=== PATIENT | male | born 1965 | race Caucasian/White ===

== ENCOUNTER 2019-07-23 13:44 | Inpatient (IN) | payer OTHER ==
[2019-07-23 14:26] LABS: Absolute Lymphocytes (CBC) 1.8 K/uL (0.7-4.9); Basophils % 0.8 % (0-1.3); Hematocrit 50.6 % (39.6-49.0); Lymphocytes % 13.5 % (15.3-44.8); MPV 8.6 fL (7.6-11.3); RBC Red Blood Cell Count 5.57 M/uL (4.33-5.43)
[2019-07-23 14:28] LABS: Protime INR 1.11
[2019-07-23 14:50] LABS: ALT/SGPT 39 U/L (12-78); AST/SGOT 15 U/L (15-37); Albumin 4.2 g/dL (3.4-5.0); Alkaline Phosphatase 60 U/L (45-117); BUN Blood Urea Nitrogen 30 mg/dL (7-18); Bicarbonate 25 mmol/L (21-32); Bilirubin Direct 0.2 mg/dL (0-0.2); Glucose Level 153 mg/dL (74-106); Magnesium 2.2 mg/dL (1.8-2.4); NT PRO-BNP 10 pg/mL (<125); Potassium 3.4 mmol/L (3.5-5.1); Protein, Total 8.1 g/dL (6.4-8.2); Sodium Level 133 mmol/L (136-145); Troponin (Emerg Dept Use Only) < 0.02 ng/mL (0.0-0.045)
--- NOTE | 2019-07-23 15:01 | RAD REPORT ---
EXAM DESCRIPTION: RAD - Chest Single View - 07/23/2019 2:21 pm CLINICAL HISTORY: CHEST PAIN Chest pain. COMPARISON: Chest Pa And Lat (2 Views) dated 09/29/2016 FINDINGS: Portable technique limits examination quality. The lungs are grossly clear. The heart is normal in size. No displaced fractures. IMPRESSION: No acute intrathoracic process suspected.
[2019-07-23] MEDS ORDERED: NA CHLORIDE 0.9% 1,000 ML ONE (15:05)
[2019-07-23] MEDS ORDERED: MORPHINE 2 MG/ML SYR ONE (15:12)
[2019-07-23] MEDS ORDERED: ONDANSETRON 4 MG/2 ML VIAL ONE (15:13)
--- NOTE | 2019-07-23 16:11 | RAD REPORT ---
EXAM DESCRIPTION: CT - Chest Abdomen Pelvis W Cont - 07/23/2019 3:29 pm CLINICAL HISTORY: Chest and abdomen pain. chest pain, abdominal pain COMPARISON: Chest Single View dated 07/23/2019 TECHNIQUE: Approximately 100 mL nonionic IV contrast was administered to the patient. All CT scans are performed using dose optimization technique as appropriate and may include automated exposure control or mA/KV adjustment according to patient size. FINDINGS: Mild linear subsegmental atelectasis is present in both lower lung canseco. No focal infilt rate is detected.No pleural or pericardial effusion.No intrathoracic adenopathy. Diffuse fatty liver. Cholelithiasis. The spleen, pancreas, adrenal glands and kidneys are within norm al limits. No bowel obstruction, free air, free fluid or abscess. Normal appendix. No pathologic lymphadenopath y in the abdomen or pelvis. Mild lumbar degenerative changes. IMPRESSION: Cholelithiasis. Fatty liver.
--- NOTE | 2019-07-23 17:38 | EDPHYS ---
Physician Documentation [facility] Name: Yno Coy Jr Age: 53 yrs Sex: Male : 1965 Arrival Date: 07/23/2019 Time: 13:47 Bed 17 Private MD: Derrick Sharp ED Physician Александр Guevara HPI: 07/22 14:24 This 53 yrs old Male presents to ER via Ambulatory with complaints of Chest jm Pain. 14:24 The patient or guardian reports chest pain that is located primarily in the [facility]al [facility]. Onset: acutely, 6 hour(s) ago. Associated signs and symptoms: Pertinent positives: back pain. The chest pain is described as burning, cramping. This is a 53 year old female with a history of htn that presents to the ED with complaints of chest pain which the patient now describes as burning. Patient states this episode began at approx 8 am with cramping to the right side of his back. Cramping then moved to his chest and lasted approx 15 minutes. Patient states during that episode he almost passed out. . Historical: - Allergies: 14:03 No Known Allergies; ll1 - PMHx: 14:03 Hypertension; ll1 - PSHx: 14:03 shoulder surgery; ll1 - Immunization history:: Flu vaccine is not up to date. - Social history:: Smoking status: Patient reports the use of cigarette tobacco products, denies chronic smoking, but will smoke occasionally, cigars, Patient uses alcohol, only on a social basis. Patient/guardian denies using street drugs. ROS: 14:24 Constitutional: Negative for fever, chills, and weight loss. jmm 14:24 Cardiovascular: Positive for chest pain. 14:24 Back: Positive for pain at rest, pain with movement. 14:24 All other systems are negative. 16:42 Abdomen/GI: Negative for abdominal pain, nausea, vomiting, diarrhea, and constipation. jmm 16:42 Constitutional: Positive for 16:42 Abdomen/GI: Positive for abdominal pain. Exam: 14:24 Constitutional: This is a well developed, well nourished patient who is awake, alert, jmm and in no acute distress. Head/Face: atraumatic. Eyes: EOMI, no conjunctival erythema appreciated ENT: Moist Mucus Membranes Neck: Trachea midline, Supple Chest/axilla: Normal chest wall appearance and motion. Cardiovascular: Regular rate and rhythm. No edema appreciated Respiratory: Normal respirations, no respiratory distress appreciated Abdomen/GI: Non distended, soft Back: Normal ROM Skin: General appearance color normal MS/ Extremity: Moves all extremities, no obvious deformities appreciated, no edema noted to the lower extremities Neuro: Awake and alert, normal gait Psych: Behavior is normal, Mood is normal, Patient is cooperative and pleasant Vital Signs: 13:57 BP 145 / 94; Pulse 86; Resp 19; Temp 98.0; Pulse Ox 96% on R/A; Pain 4/10; ll1 14:06 BP 154 / 94; Pulse 82; Resp 16; Temp 97.9(TE); Pulse Ox 95% on R/A; mh5 15:08 BP 143 / 98; Pulse 75; Resp 19; Pulse Ox 94% on R/A; mh5 16:02 BP 123 / 80; Pulse 69; Resp 13; Pulse Ox 96% on R/A; ah 18:40 BP 133 / 79; Pulse 86; Resp 16; Temp 98.7(O); Pulse Ox 97% on R/A; mh5 MDM: 13:58 Patient medically screened. [facility] 17:33 Data reviewed: vital signs, nurses notes, lab test result(s), EKG, radiologic studies, [facility] scan, plain films, ultrasound. ED course: I discussed the patient with Dr. almaraz whom will consult on admission. I discussed the patient with Dr. Schwartz whom will see the patient in the ED. . 07/22 14:04 Order name: Basic Metabolic Panel; Complete Time: 14:52 [facility] 07/22 14:04 Order name: CBC with Diff; Complete Time: 14:34 [facility] 07/22 14:04 Order name: LFT's; Complete Time: 14:52 [facility] 07/22 14:04 Order name: Magnesium; Complete Time: 14:52 [facility] 07/22 14:04 Order name: NT PRO-BNP; Complete Time: 14:52 [facility] 07/22 14:04 Order name: PT-INR; Complete Time: 14:36 [facility] 07/22 14:04 Order name: Troponin (emerg Dept Use Only); Complete Time: 14:52 [facility] 07/22 14:04 Order name: XRAY Chest (1 view); Complete Time: 15:06 [facility] 07/22 14:06 Order name: D-Dimer; Complete Time: 14:52 [facility] 07/22 15:10 Order name: CT Chest, Abdomen, Pelvis - W/Contrast; Complete Time: 16:20 [facility] 07/22 16:21 Order name: US Abdomen Limited; Complete Time: 17:45 [facility] 07/22 17:12 Order name: Troponin (emerg Dept Use Only); Complete Time: 18:01 [facility] 07/22 14:04 Order name: EKG; Complete Time: 14:05 [facility] 07/22 14:04 Order name: Cardiac monitoring; Complete Time: 14:05 [facility] 07/22 14:04 Order name: EKG - Nurse/Tech; Complete Time: 17:37 [facility] 07/22 14:04 Order name: IV Saline Lock; Complete Time: 17:37 [facility] 07/22 14:04 Order name: Labs collected and sent; Complete Time: 17:37 [facility] 07/22 14:04 Order name: O2 Per Protocol [facility] 07/22 14:04 Order name: O2 Sat Monitoring [facility] Administered Medications: 15:00 Drug: NS 0.9% 1000 ml Route: IV; Rate: 1 bolus; Site: right antecubital; 16:00 Follow up: Response: No adverse reaction; IV Status: Completed infusion; IV Intake: ah 1000ml 15:15 Drug: Zofran (Ondansetron) 4 mg Route: IVP; Site: right antecubital; 16:15 Follow up: Response: No adverse reaction; Nausea is decreased 15:15 Drug: morphine 2 mg Route: IVP; Site: right antecubital; 16:15 Follow up: Response: No adverse reaction; RASS: Alert and Calm (0) 15:19 CANCELLED (wrong order): morphine 2 mg IVP once; (PAIN>8) RASS on ADMN: Combtv4, Very ah Agttd3, Agttd2, Rstlss1, AlertClm0, Drwsy-1, LtSdtn-2, ModSdtn-3, DpSdtn-4, UnArsble-5 x2 18:10 Drug: Mefoxin 1 grams Route: IVPB; Infused Over: 30 mins; Site: right antecubital; 19:40 Follow up: Response: No adverse reaction; IV Status: Completed infusion; IV Intake: 50mlah Disposition: 07/23 07:18 Co-signature as Attending Physician, Александр Guevara MD Available for consultation . ps1 Disposition: 07/23/19 17:37 Hospitalization ordered by Gagan Schwartz for Observation. Preliminary diagnosis are Acute cholecystitis, Upper abdominal pain, unspecified, Cholelithiasis. - Bed requested for Telemetry/MedSurg (observation). - Status is Observation. - Condition is Stable. - Problem is new. - Symptoms are unchanged. Signatures: Dispatcher [employer] EDMS Mushtaq Tanner PA PA jmm Martinez, Chapo em1 Александр Guevara MD MD ps1 Yamilex Kirby RN RN Fritz Cope RN RN ll1 Corrections: (The following items were deleted from the chart) 07/22 15:19 15:18 morphine 2 mg IVP once; (PAIN>8) RASS on ADMN: Combtv4, Very Agttd3, Agttd2, Rstlss1, AlertClm0, Drwsy-1, LtSdtn-2, ModSdtn-3, DpSdtn-4, UnArsble-5 x2 ordered. 16:51 14:24 Abdomen/GI: Negative for abdominal pain, nausea, vomiting, diarrhea, and [facility] constipation, [facility] 18:13 17:37 Hospitalization Ordered by Gagan Schwartz MD for Observation. Preliminary diagnosis em1 is Acute cholecystitis; Upper abdominal pain, unspecified; Cholelithiasis. Bed requested for Telemetry/MedSurg (observation). Status is Observation. Condition is Stable. Problem is new. Symptoms are unchanged. [facility] 19:44 18:13 07/23/2019 17:37 Hospitalization Ordered by Gagan Schwartz MD for Observation. Preliminary diagnosis is Acute cholecystitis; Upper abdominal pain, unspecified; Cholelithiasis. Bed requested for Telemetry/MedSurg (observation). Status is Observation. Condition is Stable. Problem is new. Symptoms are unchanged. em1
--- NOTE | 2019-07-23 17:38 | ER ---
Nurse's Notes [facility] Name: Yon Coy Jr Age: 53 yrs Sex: Male : 1965 Arrival Date: 07/23/2019 Time: 13:47 Bed 17 Private MD: Derrick Sharp Diagnosis: Acute cholecystitis;Upper abdominal pain, unspecified;Cholelithiasis Presentation: 07/22 13:57 Chief complaint: Patient states: Noticed pain in his right back that radiated into RUQ ll1 this morning. At about 0800 this morning he had a sudden squeezing pain in his left chest, it has resolved at this time. Now he has a burning pain to his mid lower chest. States he has been under a lot of stress lately with his . Also, change of diet to keto started Sunday. He states he has diarrhea from his change of diet. He had a cough 2 weeks ago, that has essentially resolved now. Never had fever, SOB, or travel. Coronavirus screen: Proceed with normal triage. Patient reports a cough. Patient denies shortness of breath or difficulty breathing. Patient denies measured and/or subjective temperature greater than 100.4F prior to today's visit. Patient denies travel on a cruise ship or to a country the [facility] currently lists as an affected area. Patient denies contact with known and/or suspected case of COVID-19. Ebola Screen: Patient denies travel to an Ebola-affected area in the 21 days before illness onset. Initial Sepsis Screen: Does the patient meet any 2 criteria? No. Patient's initial sepsis screen is negative. Risk Assessment: Do you want to hurt yourself or someone else? Patient reports no desire to harm self or others. Onset of symptoms was July 23, 2019. 13:57 Method Of Arrival: Ambulatory ll1 13:57 Acuity: ROBERT 3 ll1 Historical: - Allergies: 14:03 No Known Allergies; ll1 - PMHx: 14:03 Hypertension; ll1 - PSHx: 14:03 shoulder surgery; ll1 - Immunization history:: Flu vaccine is not up to date. - Social history:: Smoking status: Patient reports the use of cigarette tobacco products, denies chronic smoking, but will smoke occasionally, cigars, Patient uses alcohol, only on a social basis. Patient/guardian denies using street drugs. Screenin:34 Abuse screen: Denies threats or abuse. Nutritional screening: No deficits noted. Tuberculosis screening: No symptoms or risk factors identified. Fall Risk None identified. Assessment: 14:19 General: Appears in no apparent distress. Behavior is calm, cooperative. General: Pt ah states that the discomfort started as a cramping and went to his chest. He states that he became a bit lightheaded after it happened but did not pass out. Pain: Complains of pain in chest Pain does not radiate. Pain currently is 1 out of 10 on a pain scale. at worst was 7 out of 10 on a pain scale. Quality of pain is described as burning, Pain began 2 hours ago. Is episodic, Also complains of nausea. Neuro: Level of Consciousness is awake, alert, Oriented to person, place, time. Cardiovascular: Heart tones S1 S2 present Capillary refill < 3 seconds Patient's skin is warm and dry. Rhythm is sinus rhythm. Respiratory: Airway is patent Respiratory effort is even, unlabored, Respiratory pattern is regular, symmetrical, Breath sounds are clear. GI: Bowel sounds present X 4 quads. Abd is soft and non tender X 4 quads. Reports nausea. : No signs and/or symptoms were reported regarding the genitourinary system. EENT: No signs and/or symptoms were reported regarding the EENT system. Derm: No signs and/or symptoms reported regarding the dermatologic system. 15:13 Reassessment: Pt states that he is having pain on the right side of the chest that is ah cramping and moving towards the center. PA notified and medications ordered. Pt given morphine and zofran. No other needs voiced at this time. 16:30 Reassessment: Patient is alert, oriented x 3, equal unlabored respirations, skin ah warm/dry/pink. Pt lying in bed with no distress noted at this time. Patient states symptoms have improved. 17:30 Reassessment: Patient is alert, oriented x 3, equal unlabored respirations, skin ah warm/dry/pink. Patient denies pain at this time. 18:10 Reassessment: Hospitalists in to see Pt at this time. Antibiotic hung. No needs voiced at this time. 18:33 Reassessment: Report given to receiving nurse. Vital Signs: 13:57 BP 145 / 94; Pulse 86; Resp 19; Temp 98.0; Pulse Ox 96% on R/A; Pain 4/10; ll1 14:06 BP 154 / 94; Pulse 82; Resp 16; Temp 97.9(TE); Pulse Ox 95% on R/A; mh5 15:08 BP 143 / 98; Pulse 75; Resp 19; Pulse Ox 94% on R/A; mh5 16:02 BP 123 / 80; Pulse 69; Resp 13; Pulse Ox 96% on R/A; ah 18:40 BP 133 / 79; Pulse 86; Resp 16; Temp 98.7(O); Pulse Ox 97% on R/A; mh5 ED Course: 13:47 Patient arrived in ED. mr 13:48 Derrick Sharp MD is Private Physician. mr 13:54 [facility]. jmm 13:54 Александр Guevara MD is Attending Physician. [facility] 14:02 Triage completed. [facility] 14:03 Arm band placed on Patient placed in an exam room, on a stretcher. [facility] 14:04 Yamilex Kibry, RN is Primary Nurse. 14:05 Patient has correct armband on for positive identification. Bed in low position. Call [facility] light in reach. Side rails up X 1. monitor worker on. Pulse ox on. NIBP on. 14:06 EKG done, by fingerprint technician. reviewed by Mushtaq MCCLELLAN. 14:13 X-ray completed. Portable x-ray completed in exam room. Patient tolerated procedure [facility]. 14:17 Inserted saline lock: 20 gauge in right antecubital area, using aseptic technique. 14:22 XRAY Chest (1 view) In Process Unspecified. EDMS 15:30 CT Chest, Abdomen, Pelvis - W/Contrast In Process Unspecified. EDMS 15:37 Patient moved back from [address]. ah 17:24 US Abdomen Limited In Process Unspecified. EDMS 17:36 Gagan Schwartz MD is Hospitalizing Provider. [facility] 17:37 Troponin (emerg Dept Use Only) Sent. [facility] 19:44 No provider procedures requiring assistance completed. Patient admitted, IV remains in place. Patient maintains SpO2 saturation greater than 95% on room air. Administered Medications: 15:00 Drug: NS 0.9% 1000 ml Route: IV; Rate: 1 bolus; Site: right antecubital; 16:00 Follow up: Response: No adverse reaction; IV Status: Completed infusion; IV Intake: ah 1000ml 15:15 Drug: Zofran (Ondansetron) 4 mg Route: IVP; Site: right antecubital; 16:15 Follow up: Response: No adverse reaction; Nausea is decreased 15:15 Drug: morphine 2 mg Route: IVP; Site: right antecubital; 16:15 Follow up: Response: No adverse reaction; RASS: Alert and Calm (0) 15:19 CANCELLED (wrong order): morphine 2 mg IVP once; (PAIN>8) RASS on ADMN: Combtv4, Very ah Agttd3, Agttd2, Rstlss1, AlertClm0, Drwsy-1, LtSdtn-2, ModSdtn-3, DpSdtn-4, UnArsble-5 x2 18:10 Drug: Mefoxin 1 grams Route: IVPB; Infused Over: 30 mins; Site: right antecubital; 19:40 Follow up: Response: No adverse reaction; IV Status: Completed infusion; IV Intake: 50mlah Intake: 16:00 IV: 1000ml; Total: 1000ml. 19:40 IV: 50ml; Total: 1050ml. Outcome: 17:37 Decision to Hospitalize by Provider. [facility] 19:30 Discharge instructions given to Instructed on the need for transfer. 19:43 Admitted to Med/surg accompanied by tech, via wheelchair, room 231, with chart, Report called to receiving nurse 19:43 Condition: good 19:44 Patient left the ED. Signatures: Dispatcher [employer] EDMS Mushtaq Tanner PA PA [facility] Kristina Goss mr GuzmanCarolina 1 Mee Reynolds Maria [facility] Yamilex Kirby, RN RN Fritz Smalls RN RN 1
--- NOTE | 2019-07-23 17:41 | RAD REPORT ---
EXAM DESCRIPTION: US - Abdomen Exam Limited - 07/23/2019 5:24 pm CLINICAL HISTORY: abdominal pain COMPARISON: No comparisons FINDINGS: The gallbladder demonstrates large shadowing gallstone. No pericholecystic fluid or gallbl adder wall thickening. The common bile duct is normal measuring 3 mm.. The liver demonstrates no findings of intrahepatic biliary dilatation. IMPRESSION: Cholelithiasis.
[2019-07-23] MEDS ORDERED: CEFOXITIN SODIUM 1 GM/VIAL ONE (18:00)
[2019-07-23] MEDS ORDERED: NA CHLORIDE 0.9% 50 ML IV ONE (18:01)
--- NOTE | 2019-07-23 18:25 | P.HP ---
Certification for Inpatient Patient admitted to: Inpatient With expected LOS: >2 Midnights Practitioner: I am a practitioner with admitting privileges, knowledge of patient current condition, hospital course, and medical plan of care. Services: Services provided to patient in accordance with Admission requirements found in Title 42 Section 412.3 of the Code of Federal Regulations Patient History Date of Service: 07/23/19 Primary Care Provider: Dr. Sharp Reason for admission: Acute cholecystitis History of Present Illness: Patient is a 53-year-old male with past medical history of hypertension comes in with right upper back pain radiating to his chest. Patient does report some musculoskeletal type pain as well. Patient's pain is crampy and burning in nature. No alleviating factors. Patient's symptoms are constant moderate progressively worsening. Should be noted that the patient has been on a keto diet recently. Patient denies any nausea vomiting fever chills. No recent contacts with the novel nichols virus. No cough or shortness of breath. In the ER his workup revealed elevated white blood cell count. Cardiac enzymes and EKG were negative. CT scan showed gallstones ultrasound was negative for common bile duct dilatation. His creatinine was elevated at 1.5. Liver function enzymes were normal. Surgeon auto transmission technician was consulted by the ED. Patient was referred for admission. When seen in the ER he was awake alert oriented x3 not having any chest pain Allergies No Known Allergies Allergy (Verified 07/23/19 19:49) Home medications list reviewed: Yes - Past Medical/Surgical History -: Hypertension -: Shoulder surgery - Family History Mother -: Hypertension, Diabetes Notes: Cancer also runs in the family - Social History Smoking Status: Current some day smoker Alcohol use: Yes Place of Residence: Home Review of Systems 10-point ROS is otherwise unremarkable Gastrointestinal: As per HPI Physical Examination - Vital Signs Temperature: 98 F Blood Pressure: 145/94 Pulse: 86 Respirations: 19 Pulse Ox (%): 96 - Physical Exam General: Alert, Oriented x3, Mild distress, Other (Ill-appearing male) HEENT: Atraumatic, PERRLA, Other (Dry mucous membranes), EOMI, Sclerae nonicteric Neck: Supple, JVD not distended Respiratory: Clear to auscultation bilaterally, Normal air movement, Other (No wheezing or stridor) Cardiovascular: No edema, Normal pulses, Regular rate/rhythm, Normal S1 S2 Gastrointestinal: Normal bowel sounds, Soft and benign, Non-distended, No rebound, No guarding, Tenderness Musculoskeletal: No tenderness Integumentary: No rashes, No erythema Neurological: Normal speech, Normal strength at 5/5 x4 extr, Normal tone, Cranial nerves 3-12 intact, Normal affect - Studies Laboratory Data (last 24 hrs) 07/23/19 14:13: PT 13.1 H, INR 1.11 07/23/19 14:13: WBC 13.2 H, Hgb 16.8, Hct 50.6 H, Plt Count 261 07/23/19 14:13: Sodium 133 L, Potassium 3.4 L, BUN 30 H, Creatinine 1.50 H, Glucose 153 H, Magnesium 2.2, Total Bilirubin 1.0, AST 15, ALT 39, Alkaline Phosphatase 60 Imagings Data: EXAM DESCRIPTION: CT - Chest Abdomen Pelvis W Cont - 07/23/2019 3:29 pm CLINICAL HISTORY: Chest and abdomen pain. chest pain, abdominal pain COMPARISON: Chest Single View dated 07/23/2019 TECHNIQUE: Approximately 100 mL nonionic IV contrast was administered to the patient. All CT scans are performed using dose optimization technique as appropriate and may include automated exposure control or mA/KV adjustment according to patient size. FINDINGS: Mild linear subsegmental atelectasis is present in both lower lung canseco. No focal infiltrate is detected.No pleural or pericardial effusion.No intrathoracic adenopathy. Diffuse fatty liver. Cholelithiasis. The spleen, pancreas, adrenal glands and kidneys are within normal limits. No bowel obstruction, free air, free fluid or abscess. Normal appendix. No pathologic lymphadenopathy in the abdomen or pelvis. Mild lumbar degenerative changes. IMPRESSION: Cholelithiasis. Fatty liver. EXAM DESCRIPTION: RAD - Chest Single View - 07/23/2019 2:21 pm CLINICAL HISTORY: CHEST PAIN Chest pain. COMPARISON: Chest Pa And Lat (2 Views) dated 09/29/2016 FINDINGS: Portable technique limits examination quality. The lungs are grossly clear. The heart is normal in size. No displaced fractures. IMPRESSION: No acute intrathoracic process suspected. EXAM DESCRIPTION: US - Abdomen Exam Limited - 07/23/2019 5:24 pm CLINICAL HISTORY: abdominal pain COMPARISON: No comparisons FINDINGS: The gallbladder demonstrates large shadowing gallstone. No pericholecystic fluid or gallbladder wall thickening. The common bile duct is normal measuring 3 mm.. The liver demonstrates no findings of intrahepatic biliary dilatation. IMPRESSION: Cholelithiasis. Assessment and Plan - Plan 53-year-old male with 1. Acute cholecystitis. Will start on IV antibiotics. NPO. Start on IV fluids. General surgery Dr. Tan has been consulted. He recommends surgery in a.m. patient has elevated white blood cell count. CT scan shows cholelithiasis. Abdominal ultrasound does not show any CBD dilatation. LFTs are normal. 2. Atypical chest pain. Patient and referred pain from the right upper back. This is likely from the acute cholecystitis versus musculoskeletal. 2 sets of cardiac enzymes are negative. EKG does not show any acute changes. Will check 3rd set to rule out ACS. Spoke with net fisher Dr. Silva for cardiac clearance. At this time in does not recommend any further workup. 3. Acute kidney injury. Likely due to prerenal azotemia. Will start on IV fluids and monitor creatinine level. Avoid NSAIDs. Will consult nephrology. 4. Essential hypertension. Monitor blood pressure and utilize IV hydralazine p.r.n. as patient is NPO. 5. Fatty liver disease. Patient has been counseled. Understands that this may develop in to liver cirrhosis over the next decade or so if not reversed. He will need to follow up with GI as outpatient. And to modify his diet and exercise regimen. DVT prophylaxis with SCDs. No chemical anticoagulation due to possible surgery in a.m.. Discharge Plan: Home Plan to discharge in: Greater than 2 days - Advance Directives Does patient have a Living Will: No Does patient have a Durable POA for Healthcare: No - Code Status/Comfort Care Code Status Assessed: Yes
[2019-07-23 19:51] VITALS: BMI 36.6
[2019-07-23] MEDS ORDERED: ONDANSETRON 4 MG/2 ML VIAL IV PRN (19:51)
[2019-07-23] MEDS ORDERED: KCL 20 MEQ/100 mL IVPB 20 MEQ/100 ML BAG IV SCH (19:51)
[2019-07-23] MEDS ORDERED: D5 0.45 NS 1,000 ML IV SCH (19:51)
[2019-07-23] MEDS ORDERED: MORPHINE 2 MG/ML SYR IV PRN (19:51)
[2019-07-23] MEDS: METRONIDAZOLE 500mg IVPB 500 MG/100 ML BAG IV SCH (20:33)
[2019-07-23] MEDS: CEFTRIAXONE/SWI 1gm 1 GM/10 ML SYR IV SCH (20:33)
[2019-07-23] MEDS ORDERED: CEFTRIAXONE 1 GM/NS 50 ML 1 GM/50 ML BAG IV SCH (21:00)
[2019-07-24] MEDS: METRONIDAZOLE 500mg IVPB 500 MG/100 ML BAG IV SCH ×3 (01:51→16:18)
[2019-07-24] MEDS: D5 0.9 NS 1,000 ML IV SCH ×3 (01:51→14:00)
[2019-07-24 04:51] LABS: Absolute Lymphocytes (CBC) 2.2 K/uL (0.7-4.9); Basophils % 0.8 % (0-1.3); Hematocrit 46.9 % (39.6-49.0); Lymphocytes % 19.7 % (15.3-44.8); MPV 8.8 fL (7.6-11.3); RBC Red Blood Cell Count 5.13 M/uL (4.33-5.43)
[2019-07-24 05:11] LABS: Albumin 3.6 g/dL (3.4-5.0); Bilirubin Total 0.6 mg/dL (0.2-1.0); Magnesium 2.4 mg/dL (1.8-2.4); Phosphorus 2.9 mg/dL (2.5-4.9); Potassium 4.1 mmol/L (3.5-5.1); Protein, Total 6.9 g/dL (6.4-8.2); Uric Acid 6.7 mg/dL (3.5-7.2)
[2019-07-24 05:51] LABS: Urine Appearance CLEAR; Urine Bilirubin NEGATIVE (NEG); Urine Blood NEGATIVE (NEG); Urine Color YELLOW; Urine Glucose NEGATIVE (NEG); Urine Protein NEGATIVE (NEG); Urine Urobilinogen 0.2 mg/dL (0.2-1.0); Urine pH 5.5 (5.0-7.0)
[2019-07-24 05:57] LABS: Urine Bacteria <20 /HPF (NONE SEEN); Urine Culture Reflex Order NOT NEEDED; Urine RBC <5 /HPF (NONE SEEN)
[2019-07-24 06:09] LABS: UR MICROALBUMIN 0.7 mg/dL (< 1.9)
--- NOTE | 2019-07-24 07:05 | EKG ---
Test Date: 2019-07-23 Test Time: 14:00:58 Advertising Statistical Clerk: VINICIUS MEASUREMENT RESULTS: Intervals: Rate: 81 PA: 140 QRSD: 90 QT: 368 QTc: 427 [place]: P: 57 PA: 140 QRS: 59 T: 60 INTERPRETIVE STATEMENTS: Normal sinus rhythm Normal ECG No previous ECG available for comparison Electronically Signed On 07-24-19 07:04:36 CDT by Sachin Silva
[2019-07-24] MEDS: CEFTRIAXONE/SWI 1gm 1 GM/10 ML SYR IV SCH ×2 (08:19→20:48)
[2019-07-24] MEDS ORDERED: SUCCINYLCHOLINE 20 MG/ML (10 ML) IV ONE (08:25)
--- NOTE | 2019-07-24 08:47 | CON ---
Date of Consultation: 07/24/[address] The patient admitted to Dr. Schwartz's service on 07/23/2019. I saw the patient on 07/24/2019. Reason For Consultation: Chest pain and cardiac clearance for a cholecystectomy. History Of Present Illness: Mr. Coy is a 53-year-old white male, has only a history of hypertensio n and a family history of CAD, diabetes, and hypertension. He came in with mid-epigastric right uppe r quadrant pain radiating to the left chest with some nausea, but no vomiting or diaphoresis. Denied PND, orthopnea, or pedal edema. Denied any palpitations or syncope. Had a normal EKG, normal chest x-ray, normal troponin, but he had elevated white count and an ultrasound that shows cholelithiasis. The plan is to take him today for surgery. He denied any PND, orthopnea, or pedal edema. He denie d any fever or chills. Past Medical History: Includes hypertension. Allergies: NONE. Review of Systems: Negative. Social History: Negative. Family History: Positive for CAD, diabetes, and hypertension. Medications: At home include lisinopril with hydrochlorothiazide. Physical Examination: Vital Signs: Stable. He is afebrile. HEENT: Negative. Neck: Supple with no bruits. Chest: Clear to auscultation and percussion. Cardiac: Regular rhythm and rate. No murmurs, gallops, or rubs. Abdomen: Benign. Extremities: No clubbing, cyanosis, or edema. Diagnostic Data: Chest x-ray was negative. EKG was negative. Troponin was negative. He had a white count of 13,000, creatinine is 1.5, and potassium of 3.4. Impression And Plan: Mr. Coy's chest pain is definitely noncardiac in nature. This is secondary t o his cholelithiasis. He had a normal chest x-ray, normal EKG, no symptoms that suggest congestive h eart failure or coronary artery disease. I think he is at low risk for perioperative mortality. He will follow up with me after his surgery in the near future. I think with his risk factors, it would be good for him to have a stress test down the road. His creatinine is elevated and that needs to b e watched carefully. His potassium needs to be supplemented. This is probably secondary to his hydr ochlorothiazide. His blood pressure is well controlled. I will continue to follow him. COMFORT/SIRISHA Voice ID: [id number] Report ID: [id number]
[2019-07-24] MEDS ORDERED: Ringers Lactate 1,000 ML IV ONE ×2 (09:33→11:44)
[2019-07-24] MEDS ORDERED: propofoL 200 MG/20 ML VIAL IV ONE (09:34)
[2019-07-24] MEDS ORDERED: LIDOCAINE 2% MPF 5 ML VIAL ONE (09:34)
[2019-07-24] MEDS ORDERED: ROCURONIUM 50 MG/5 ML VIAL IV ONE (09:34)
[2019-07-24] MEDS ORDERED: FENTANYL CITR 100 MCG/2 ML ONE (09:34)
[2019-07-24] MEDS ORDERED: MIDAZOLAM HCL 2 MG/2 ML INJ ONE (10:46)
[2019-07-24] MEDS ORDERED: ONDANSETRON 4 MG/2 ML VIAL ONE (11:41)
[2019-07-24] MEDS ORDERED: dexAMETHasone 4 MG/ML VIAL ONE (11:41)
[2019-07-24] MEDS ORDERED: KETOROLAC 30 MG/ML INJ ONE (12:03)
[2019-07-24] MEDS ORDERED: GLYCOPYRROLATE 0.2 MG/ML SYR ONE (12:03)
[2019-07-24] MEDS ORDERED: NEOSTIGMINE 1 MG/ML -5 ML ONE (12:04)
--- NOTE | 2019-07-24 12:09 | P.BOP ---
Preoperative diagnosis: acute cholecystitis, symptomatic cholelithiasis Postoperative diagnosis: same plus umbilical hernia Primary procedure: 1. Laparoscopic Cholecystectomy Secondary procedure: 2. Open repair of umbilical hernia Coin Machine Servicer Repairer: BAILEE ZAMORA (ARABIC LINGUIST) Estimated blood loss: <25cc Specimen: gb, hernia sac Findings: distended edematous gallbladder. reducible omentum umbilical hernia Anesthesia: General Drain(s): DAYNE drain Transferred to: Recovery Room Condition: Good
[2019-07-24] MEDS ORDERED: HYDROCODONE/APAP 5/325 MG TAB PO PRN (12:19)
[2019-07-24] MEDS: HYDROMORPHONE HCL 1 MG/ML INJ ONE ×2 (12:35→12:46)
--- NOTE | 2019-07-24 13:30 | CON ---
Date of Consultation: 07/23/2019 Reason For Service: Epigastric upper quadrant pain, acute cholecystitis, symptomatic cholelithiasis. History Of Present Illness: This is a case of a 53-year-old patient who comes to us with epigastric pain radiating to the back associated with nausea. The pain was intractable, did not want to get bet ter. He was concerned also he can have heart issues since the pain was also going to the chest area. Patient was admitted to the ER, cardia workup was immediately started. Surgical consult was done s cata the patient also has symptoms of AA acute cholecystitis and symptomatic cholelithiasis. The pat iehernandez stated the pain started about 24 hours ago. It is just going to right side of the scapula, radi ating to also gastric area and then up in the chest. He does not remember eating anything out of usu al. He does not remember any family members sick at home. He denies any dysuria, hematuria, hematoc hezia, or melena. He denies any recent travelling out of the country. The pain is there, it is pres ent. He stated that he could not eat this morning, last night he had some steak. He mentioned that he has been on and off on a keto diet, so he has stopped eating fat for a few days and then after jeremy t he ate the steak. When he ate the steak is when his pain starting and it just did not go away. Du ring the ultrasound it was found to have a gallstone with a large stone impacted in the neck of the g allbladder, and that is why surgical consult was obtained. Allergies: NONE. Medical History: Includes hypertension. Surgical History: Include shoulder surgery. Family History: Hypertension, diabetes, and cancer, but he does not remember exactly which one. He smokes daily, drinks alcohol daily, although social he claims. Review of Systems: Ten-points otherwise unremarkable. Physical Examination: General: Patient is awake and alert. HEENT: Pupils are equal and reactive, anicteric. Supple. Chest: Clear. Abdomen: Soft and depressible. Epigastric right upper quadrant pain. There is Stroud sign positive . The rest of abdomen feels soft and depressible and the rest of the abdomen had no rebound. No her nias palpated. The pain is in the epigastric area, radiating to the right upper quadrant. It gets w orse also when he takes a deep inspiration. The pain does not radiate anywhere else in the arm. Genitalia: Deferred. Rectal: Deferred. Extremities: Good capillary refill. Laboratory Data: Blood work shows WBC count of 13.2 with hemoglobin of 16.8, platelets of 261, INR i s 1.1. Creatinine is 1.5 with sodium 133 and glucose 153. Imaging Studies: CAT scan of he abdomen and pelvis shows diffuse fatty liver. Cholelithiasis. No a ppendicitis. No bowel obstruction. Ultrasound shows also a large shadowing gallstone close to the a francisco of the neck of the gallbladder, cannot rule out infection there. Assessment: 53-year-old patient came with some issues. He has chest pain, it is intractable, they a re working up for the cardiac disease. He is obese, he understands the importance of losing weight. He understands the importance of also to stop smoking. He is in the right tract in the sense of try ing to modify his diet and trying to lose some weight, but obviously his gallbladder is not cooperati ng. He has epigastric right upper quadrant pain with Stroud sign positive. Sonogram shows large gal lstone in the neck of the gallbladder, although so far we did not see pericholecystic fluid, that onc e again will be seen in some occasions even though the patient has acute cholecystitis with clinical symptoms. So he has the option of basically pass the cardia workup, they are working on that right n ow, he has been admitted for this. We suspect and the cardiac medical doctors believe that this is j ust a gallbladder issue, but we have to be safe. This pain is intractable in that area and he unders tands there is a national emergency with coronavirus and chance for rayna coronavirus, but also this basically is going towards the point that they may once again bring him back to the ER and also delay treatment and also get worse with comorbidities and he preferred to have the gallbladder remov ed while he is in the hospital since this is the reason why he came here. I do agree with him he is behaving like somewhat with acute cholecystitis, not just gallstones. The benefits, alternatives, an d risks of laparoscopic, possible open cholecystectomy where fully explained, which include, but are not limited to infection, bleeding, damage to adjacent structures, anesthesia complications, cholelit hiasis, bile leak, pancreatitis, MD, and even . He also understands this may not relieve any sy mptoms, he might need more than one surgical intervention. He was counseled about smoking cessation and also alcohol cessation. Once again, he was advised to look for professional help for his weight loss program. CHRISTINA Voice ID: [id number] Report ID: [id number]
--- NOTE | 2019-07-24 16:00 | OP ---
Date of Procedure: 07/24/2019 Surgeon: Sandip Tan MD Oil Dispatcher: AVERY Lord. Preoperative Diagnoses: Acute cholecystitis, symptomatic cholelithiasis, morbid obesity, hypertensio n. Postoperative Diagnoses: Acute cholecystitis, symptomatic cholelithiasis, morbid obesity, hypertensi on, umbilical hernia. Procedures: 1.Laparoscopic cholecystectomy. 2.Open repair of umbilical hernia. Estimated Blood Loss: Less than 25 mL. Specimens: Gallbladder and hernia sac. Findings: Distended with edema to the wall gallbladder, had to be decompressed before moving with th e rest of the procedure. Patient has reducible omentum and umbilical hernia. Anesthesia: General plus local. Drains: DAYNE #10. Indications: This is the case of a 53-year-old patient who came yesterday with intractable abdominal pain, it started in the back and moved to epigastric area, but also went to the chest, so he has to be admitted to rule out a cardiac pathology, found to have acute cholecystitis with symptomatic taniya lithiasis. We tried to give him some medication, trying to get better, he did not improve, continued with intractable abdominal pain. His gallbladder is distended. He came initially with leukocytosis . Once the cardia workup was completed and they gave the clearance and the conclusion was this was t he gallbladder, then we offered him the option of laparoscopic possible open cholecystectomy with danae efits, alternatives, and risks including, but not limited to infection, bleeding, damage to adjacent structures, anesthesia complications, cholelithiasis, choledocholithiasis, MA, and even . He al so understands this may not relieve any symptoms, he might need more than one surgical intervention. He also understands we are in national emergency with the chance to contract coronavirus. Since his pain is constant and he does not want live like this affecting the socialized, then we will book him in surgery in the urgent emergent procedure. Description Of Procedure: Patient was brought to the operating room, placed in supine position. Ane sthesia was done without complication. Abdominal area was prepped and draped in a sterile fashion. Marcaine 0.5% was injected for local anesthetic after time-out was called. Abdomen was prepped and d raped in a sterile fashion. Local anesthetic was applied in the umbilical region. Incision was conti ied down to fascia, which was opened under direct vision. Peritoneum was encountered, we noticed the patient to have an umbilical hernia so the hernia sac was removed. The patient has omentum that was reducible at least when we removed the adhesions. It was reduced back into the abdominal cavity. U mbilical sac was removed that allowed to put Vicryl #1 inside the fascia. Sanjeev trocar was carefull y introduced. Pneumoperitoneum was obtained. This allowed me to place 3 more trocars, 5 mm each one of them, in the right upper quadrant. Immediately, we noticed that the patient had many omental adh esions to the gallbladder and when we removed those adhesions, we noticed that the patient had disten ded and edematous gallbladder. We could not hold the gallbladder with a grasper unless we deflated t he area, so we decompressed the gallbladder with the endo needle under direct visualization and the n eedle was removed under direct visualization. This allowed me to put a grasper in the fundus of the gallbladder, another grasper in the infundibulum. Continued removing the adhesions of omentum to the gallbladder and also seeing findings consistent with cholecystitis. So, once we had that, we retrac mila the gallbladder in the inferolateral fashion after putting another trocar in the infundibulum. C ystic duct and cystic artery were clearly isolated, freed circumferentially, and a connection between those and the gallbladder was clearly identified. I proceeded to ligate those by at least 3 clips p roximal, 1 clip distal, ligation in middle. The same was done with the cystic artery. No bile leak. No bleeding. The gallbladder was removed from liver using Bovie cauterizer and removed from abdomi nal cavity using the an EndoCatch through the umbilical incision. The area was inspected once again. The oozing from the gallbladder was carefully controlled with the Bovie cauterizer. Since we had a swelling over that area, an ultrasound did not show all the details that it showed in this procedure , I left the DAYNE drain in that region to help us drain the area and the infectious process. The DAYNE dr ray was removed from 1 of the trocar sites and secured in place with 3-0 nylon. The area was inspect ed once again. No bile leak, no bleeding. At that moment, I proceeded to remove the trocars under d irect vision. Deflated the pneumoperitoneum. Closed the fascia and umbilical hernia with #1 Vicryl. Irrigated subcutaneous tissue, closed that with 3-0 chromic and skin with jolie. Sponge count an d instrument counts were correct. Patient tolerated the procedure well. Patient was sent to recover y in stable condition. Depends on the medical condition this afternoon. From a surgical standpoint, he may go home, but once again he is admitted to the Medical Service with the diagnosis of chest ramana n, so they have to make sure they have the proper and safe discharge, but if he goes home this aftern oon, I explained to the patient's and him about following up in the office in a week next , record DAYNE drain every 24 hours. No heavy lifting. May take the dressings off in 48 hours, and take a shower. Medications: Will include Augmentin 875 p.o. q.12, Tylenol No.3 q.4 hours p.r.n. pain. Incentive sp irometry and ambulation. ORLANDO/SIRISHA Voice ID: [id number] Report ID: [id number]
--- NOTE | 2019-07-24 16:37 | P.PN ---
Subjective Date of Service: 07/24/19 Primary Care Provider: Dr. Sharp Chief Complaint: Acute cholecystitis Subjective: Improving Patient tolerated surgery well. Pain is significantly improved. Has not had anything to eat since the surgery. Denies any chest pain Review of Systems 10-point ROS is otherwise unremarkable Gastrointestinal: As per HPI Physical Examination - Vital Signs Temperature: 98.0 F Blood Pressure: 107/63 Pulse: 77 Respirations: 16 Pulse Ox (%): 98 - Physical Exam General: Alert, In no apparent distress, Oriented x3, Obese HEENT: Atraumatic, PERRLA, EOMI Neck: Supple, JVD not distended Respiratory: Clear to auscultation bilaterally, Normal air movement Cardiovascular: No edema, Normal pulses, Regular rate/rhythm, Normal S1 S2 Gastrointestinal: Normal bowel sounds, Soft and benign, Non-distended, Tenderness (Around incision site. Clean dry intact) Musculoskeletal: No erythema, No tenderness Integumentary: No rashes Neurological: Normal speech, Normal strength at 5/5 x4 extr, Normal tone, Normal affect - Studies Laboratory Last Values WBC 13.2 K/uL (4.3-10.9) H 07/23/19 14:13 RBC 5.57 M/uL (4.33-5.43) H 07/23/19 14:13 Hgb 16.8 g/dL (13.6-17.9) 07/23/19 14:13 Hct 50.6 % (39.6-49.0) H 07/23/19 14:13 MCV 90.9 fL (80-100) 07/23/19 14:13 MCH 30.1 pg (27.0-35.0) 07/23/19 14:13 MCHC 33.2 g/dL (32.0-36.0) 07/23/19 14:13 RDW 13.3 % (12.1-15.2) 07/23/19 14:13 Plt Count 261 K/uL (152-406) 07/23/19 14:13 MPV 8.6 fL (7.6-11.3) 07/23/19 14:13 Neutrophils % 77.7 % (41.7-73.7) H 07/23/19 14:13 Lymphocytes % 13.5 % (15.3-44.8) L 07/23/19 14:13 Monocytes % 7.1 % (3.3-12.3) 07/23/19 14:13 Eosinophils % 0.9 % (0-4.4) 07/23/19 14:13 Basophils % 0.8 % (0-1.3) 07/23/19 14:13 Absolute Neutrophils 10.3 K/uL (1.8-8.0) H 07/23/19 14:13 Absolute Lymphocytes 1.8 K/uL (0.7-4.9) 07/23/19 14:13 Absolute Monocytes 0.9 K/uL (0.1-1.3) 07/23/19 14:13 Absolute Eosinophils 0.1 K/uL (0-0.5) 07/23/19 14:13 Absolute Basophils 0.1 K/uL (0-0.5) 07/23/19 14:13 PT 13.1 SECONDS (9.5-12.5) H 07/23/19 14:13 INR 1.11 07/23/19 14:13 D-Dimer < 215 FEUng/mL (<500) 07/23/19 14:13 Sodium 133 mmol/L (136-145) L 07/23/19 14:13 Potassium 3.4 mmol/L (3.5-5.1) L 07/23/19 14:13 Chloride 98 mmol/L (98-107) 07/23/19 14:13 Carbon Dioxide 25 mmol/L (21-32) 07/23/19 14:13 BUN 30 mg/dL (7-18) H 07/23/19 14:13 Creatinine 1.50 mg/dL (0.55-1.3) H 07/23/19 14:13 Estimated GFR 49 mL/min (=/>90) L 07/23/19 14:13 Glucose 153 mg/dL (74-106) H 07/23/19 14:13 Calcium 8.7 mg/dL (8.5-10.1) 07/23/19 14:13 Magnesium 2.2 mg/dL (1.8-2.4) 07/23/19 14:13 Total Bilirubin 1.0 mg/dL (0.2-1.0) 07/23/19 14:13 Direct Bilirubin 0.2 mg/dL (0-0.2) 07/23/19 14:13 AST 15 U/L (15-37) 07/23/19 14:13 ALT 39 U/L (12-78) 07/23/19 14:13 Alkaline Phosphatase 60 U/L (45-117) 07/23/19 14:13 Rapid Troponin I < 0.02 ng/mL (0.0-0.045) 07/23/19 17:33 NT-Pro-B Natriuret Pep 10 pg/mL (<125) 07/23/19 14:13 Serum Total Protein 8.1 g/dL (6.4-8.2) 07/23/19 14:13 Albumin 4.2 g/dL (3.4-5.0) 07/23/19 14:13 Globulin 3.9 g/dL (2.3-3.5) H 07/23/19 14:13 Albumin/Globulin Ratio 1.1 (1.1-1.8) 07/23/19 14:13 Medications List Reviewed: Yes Assessment And Plan - Plan 53-year-old male with 1. Acute cholecystitis. Continue IV antibiotics. Start on diet today. Continue IV fluids. Patient underwent laparoscopic cholecystectomy by Dr. Tan . In tolerated procedure well. white blood cell count now normalized. CT scan shows cholelithiasis. Abdominal ultrasound does not show any CBD dil atation. LFTs are normal. Pain control 2. Atypical chest pain. Patient and referred pain from the right upper back. This is likely from the acute cholecystitis versus musculoskeletal. 3 sets of c ardiac enzymes are negative. EKG does not show any acute changes. ACS ruled out. Appreciate public finance specialist Dr. Silva input. At this time in does not recommend any further workup. Patient will need outpatient stress test once the viral epidemic has subsided. 3. Acute kidney injury. Likely due to prerenal azotemia. Slightly improved. Continue IV fluids and monitor creatinine level. Avoid NSAIDs. Nephrology has been consulted. Will continue to monitor kidney function 4. Essential hypertension. Monitor blood pressure and utilize IV hydralazine p.r.n. will need to switch from lisinopril HCTZ to amlodipine due to patient's acute kidney injury. 5. Fatty liver disease. Patient has been counseled. Understands that this may develop in to liver cirrhosis over the next decade or so if not reversed. He will need to follow up with GI as outpatient. And to modify his diet and exercise regimen. DVT prophylaxis Lovenox 24 hr post surgery. Continue SCDs
[2019-07-24] MEDS ORDERED: NA CHLORIDE 0.9% 1,000 ML IV SCH (17:00)
[2019-07-24] MEDS: ENOXAPARIN 40 MG/0.4 ML SQ SCH (18:45)
--- NOTE | 2019-07-24 20:30 | P.CNS ---
Date of Consult: 07/24/19 Reason for Consult: MELISSA Requesting Physician: Gagan Schwartz Primary Care Provider: Dr. Sharp Chief Complaint: Acute cholecystitis History of Present Illness: 53 yo WM HTN presented to the ER with moderate, progressive chest pain radiating to the back. No modifying fx. Recently started a keto diet. Reports Advil X1 dose in the past few days. No bladder difficulties. Patient is a 53-year-old male with past medical history of hypertension comes in with right upper back pain radiating to his chest. Patient does report some musculoskeletal type pain as well. Patient's pain is crampy and burning in natu re. No alleviating factors. Patient's symptoms are constant moderate progressively worsening. Should be noted that the patient has been on a keto diet recently. Patient denies any nausea vomiting fever chills. No recent contacts with the novel nichols virus. No cough or shortness of breath. 14:24 This 53 yrs old Male presents to ER via Ambulatory with complaints of Chest jmm Pain. 14:24 The patient or guardian reports chest pain that is located primarily in the substernal jmm area. Onset: acutely, 6 hour(s) ago. Associated signs and symptoms: Pertinent positives: back pain. The chest pain is described as burning, cramping. This is a 53 year old female with a history of htn that presents to the ED with complaints of chest pain which the patient now describes as burning. Patient states this episode began at approx 8 am with cramping to the right side of his back. Cramping then moved to his chest and lasted approx 15 minutes. Patient states during that episode he almost passed out. Allergies No Known Allergies Allergy (Verified 07/23/19 19:49) Home medications list reviewed: Yes Home Medications: Lisinopril/Hydrochlorothiazide [Lisinopril-Hctz 20-12.5 mg Tab] 1 tab PO DAILY 07/23/19 Amox/Clavulanate [Augmentin 875-125 Tab] 875 mg PO BID #12 tab 07/24/19 Codeine/APAP [Tylenol W/Codeine #3 tab] 1 tab PO Q4HP PRN #30 tab 07/24/19 - Past Medical/Surgical History Diabetic: No -: Hypertension -: L Shoulder surgery - Family History Mother Medical History: Hypertension, Diabetes Notes: Cancer also runs in the family - Social History Smoking Status: Current some day smoker Alcohol use: No CD- Drugs: No Caffeine use: Yes Place of Residence: Home Review of Systems 10-point ROS is otherwise unremarkable General: Malaise Cardiovascular: Chest Pain Musculoskeletal: Shoulder Pain, Back Pain Physical Examination Temp Pulse Resp BP Pulse Ox 98.0 F 77 16 107/63 98 07/24/19 16:36 07/24/19 16:36 07/24/19 16:36 07/24/19 16:36 07/24/19 16:36 General: In no apparent distress, Oriented x3, Cooperative HEENT: Atraumatic Neck: Supple Respiratory: Clear to auscultation bilaterally Cardiovascular: No edema, Regular rate/rhythm Gastrointestinal: Non-distended, No guarding Musculoskeletal: No clubbing, No contractures Integumentary: No rashes, No cyanosis Neurological: Normal speech Blood work reviewed in the chart. Imagings Data: EXAM DESCRIPTION: US - Abdomen Exam Limited - 07/23/2019 5:24 pm CLINICAL HISTORY: abdominal pain COMPARISON: No comparisons FINDINGS: The gallbladder demonstrates large shadowing gallstone. No pericholecystic fluid or gallbladder wall thickening. The common bile duct is normal measuring 3 mm.. The liver demonstrates no findings of intrahepatic biliary dilatation. IMPRESSION: Cholelithiasis. EXAM DESCRIPTION: CT - Chest Abdomen Pelvis W Cont - 07/23/2019 3:29 pm CLINICAL HISTORY: Chest and abdomen pain. chest pain, abdominal pain COMPARISON: Chest Single View dated 07/23/2019 TECHNIQUE: Approximately 100 mL nonionic IV contrast was administered to the patient. All CT scans are performed using dose optimization technique as appropriate and may include automated exposure control or mA/KV adjustment according to patient size. FINDINGS: Mild linear subsegmental atelectasis is present in both lower lung canseco. No focal infiltrate is detected.No pleural or pericardial effusion.No intrathoracic adenopathy. Diffuse fatty liver. Cholelithiasis. The spleen, pancreas, adrenal glands and kidneys are within normal limits. No bowel obstruction, free air, free fluid or abscess. Normal appendix. No pathologic lymphadenopathy in the abdomen or pelvis. Mild lumbar degenerative changes. IMPRESSION: Cholelithiasis. Fatty liver. EXAM DESCRIPTION: RAD - Chest Single View - 07/23/2019 2:21 pm CLINICAL HISTORY: CHEST PAIN Chest pain. COMPARISON: Chest Pa And Lat (2 Views) dated 09/29/2016 FINDINGS: Portable technique limits examination quality. The lungs are grossly clear. The heart is normal in size. No displaced fractures. IMPRESSION: No acute intrathoracic process suspected. Conclusions/Impression: A/ MELISSA improving with IVF. Hyponatremia Hypokalemia HTN. Hyperglycemia Acute cholecystitis. P/ Continue current POC and Medications. Continue IVF. Continue abx. Follow up with surgery. Check A1C due to hyperglycemia. No NSAIDs. AM labs. Daily weight. Thank you kindly for the consultation.
[2019-07-24] MEDS: NA CHLORIDE 0.9% 1,000 ML IV SCH (20:33)
[2019-07-25] MEDS: METRONIDAZOLE 500mg IVPB 500 MG/100 ML BAG IV SCH ×3 (01:31→16:31)
[2019-07-25] MEDS: NA CHLORIDE 0.9% 1,000 ML IV SCH ×2 (01:32→16:33)
[2019-07-25 06:07] LABS: Absolute Lymphocytes (CBC) 1.9 K/uL (0.7-4.9); Basophils % 0.3 % (0-1.3); Hematocrit 42.5 % (39.6-49.0); Lymphocytes % 11.3 % (15.3-44.8); MPV 8.6 fL (7.6-11.3); RBC Red Blood Cell Count 4.69 M/uL (4.33-5.43)
[2019-07-25 06:10] LABS: Albumin 3.3 g/dL (3.4-5.0); Bilirubin Total 0.7 mg/dL (0.2-1.0); Potassium 3.8 mmol/L (3.5-5.1); Protein, Total 6.5 g/dL (6.4-8.2)
[2019-07-25] MEDS: CEFTRIAXONE/SWI 1gm 1 GM/10 ML SYR IV SCH (08:04)
[2019-07-25] MEDS: ENOXAPARIN 40 MG/0.4 ML SQ SCH (08:04)
[2019-07-25 08:51] VITALS: O2SAT 95
[2019-07-25 09:01] LABS: Blood Morphology Comment NOT SEEN (NOT SEEN); Platelet Estimate ADEQ; Urine White Blood Cell Casts OK
--- NOTE | 2019-07-25 09:32 | P.DS ---
Admission Date: 07/23/19 Discharge Date: 07/25/19 Primary Care Provider: Dr. Sharp Disposition: ROUTINE DISCHARGE Discharge Condition: GOOD Reason for Admission: Acute cholecystitis Consultations: Dr. Almaraz general surgery Dr. Silva cardiology Dr. Tellez nephrology Procedures: Laparoscopic cholecystectomy and umbilical hernia repair Brief History of Present Illness: Patient is a 53-year-old male with past medical history of hypertension comes in with right upper back pain radiating to his chest. Patient does report some musculoskeletal type pain as well. Patient's pain is crampy and burning in nature. No alleviating factors. Patient's symptoms are constant moderate progressively worsening. Should be noted that the patient has been on a keto diet recently. Patient denies any nausea vomiting fever chills. No recent contacts with the novel nichols virus. No cough or shortness of breath. In the ER his workup revealed elevated white blood cell count. Cardiac enzymes and EKG were negative. CT scan showed gallstones ultrasound was negative for common bile duct dilatation. His creatinine was elevated at 1.5. Liver function enzymes were normal. Surgeon chief communications officer was consulted by the ED. Patient was referred for admission. When seen in the ER he was awake alert oriented x3 not having any chest pain Hospital Course: patient is a 53-year-old male with past medical history of hypertension comes in with right upper back pain radiating to the chest. Patient was found to have acute cholecystitis. Acute coronary syndrome was ruled out. Patient was seen by Cardiology for cardiac clearance prior to surgery. Patient started on IV fluids and IV antibiotics. He was kept NPO. Patient seen by general surgeon Dr. Almaraz and was taken for laparoscopic cholecystectomy and umbilical hernia repair. Patient tolerated the procedure well. Patient is able to tolerate a diet after. Patient's kidney function was slightly elevated upon admission. This is likely due to dehydration. We will azotemia. He was started on IV fluids and his kidney function normalized. Patient was seen by nephrology Dr. Tellez. Patient was taken off of his lisinopril HCTZ combo and we switched to amlodipine due to his kidney dysfunction. Primary care physician to adjust dose and to had the combo pill as needed. Patient to monitor his blood pressure closely and to present a log to his primary care physician. Patient was counseled regarding fatty liver disease which may develop in his cirrhosis for the next 10-20 years. He was also cautioned regarding his A1c which is 6.4 as he is prediabetic. He needs to have diet and exercise regimen changed and to have A1c repeated after these changes in the next 2-3 months and to follow up closely with his primary care physician regarding pre diabetes. Patient also need stress test as an outpatient which can be done by cardiology. Overall patient did well he was afebrile initially is white count improved but then went up to 16,000 however lactate was normal. Chest x-ray was clear no urinary symptoms. Patient will finish off course of oral antibiotics at home. No signs of wound infection. Patient was then cleared by consultants standpoint and was discharged home in a stable condition. 1. Acute cholecystitis. Continue IV antibiotics. Start on diet today. Continue IV fluids. Patient underwent laparoscopic cholecystectomy by Dr. Almaraz . In tolerated procedure well. white blood cell count now normalized. CT scan shows cholelithiasis. Abdominal ultrasound does not show any CBD dilatation. LFTs are normal. Pain control 2. Atypical chest pain. Patient and referred pain from the right upper back. This is likely from the acute cholecystitis versus musculoskeletal. 3 sets of cardiac enzymes are negative. EKG does not show any acute changes. ACS ruled out. Appreciate fox raiser Dr. Silva input. At this time in does not re commend any further workup. Patient will need outpatient stress test once the viral epidemic has subsided. 3. Acute kidney injury. Likely due to prerenal azotemia. Slightly improved. Continue IV fluids and monitor creatinine level. Avoid NSAIDs. Nephrology has been consulted. Will continue to monitor kidney function 4. Essential hypertension. Monitor blood pressure and utilize IV hydralazine p.r.n. will need to switch from lisinopril HCTZ to amlodipine due to patient's acute kidney injury. 5. Fatty liver disease. Patient has been counseled. Understands that this may develop in to liver cirrhosis over the next decade or so if not reversed. He will need to follow up with GI as outpatient. And to modify his diet and exercise regimen Vital Signs/Physical Exam: Temp Pulse Resp BP Pulse Ox 97.6 F 79 14 115/62 96 07/25/19 04:00 07/25/19 04:00 07/25/19 04:00 07/25/19 04:00 07/25/19 04:00 General: Alert, In no apparent distress, Oriented x3, Obese HEENT: Atraumatic, PERRLA, EOMI Neck: Supple, JVD not distended Respiratory: Clear to auscultation bilaterally, Normal air movement Cardiovascular: No edema, Normal pulses, Regular rate/rhythm, Normal S1 S2 Gastrointestinal: Normal bowel sounds, Soft and benign, Non-distended, No tenderness, Other (Incision site clean dry intact) Musculoskeletal: No tenderness Integumentary: No rashes Neurological: Normal speech, Normal strength at 5/5 x4 extr, Normal tone, Cranial nerves 3-12 intact, Normal affect Laboratory Data at Discharge: WBC 16.5 K/uL (4.3-10.9) H D 07/25/19 05:38 Hgb 14.2 g/dL (13.6-17.9) 07/25/19 05:38 Hct 42.5 % (39.6-49.0) 07/25/19 05:38 Plt Count 232 K/uL (152-406) 07/25/19 05:38 PT 13.1 SECONDS (9.5-12.5) H 07/23/19 14:13 INR 1.11 07/23/19 14:13 Sodium 140 mmol/L (136-145) 07/25/19 05:38 Potassium 3.8 mmol/L (3.5-5.1) 07/25/19 05:38 BUN 18 mg/dL (7-18) 07/25/19 05:38 Creatinine 1.20 mg/dL (0.55-1.3) 07/25/19 05:38 Glucose 103 mg/dL (74-106) 07/25/19 05:38 Uric Acid 6.7 mg/dL (3.5-7.2) 07/24/19 04:26 Phosphorus 2.9 mg/dL (2.5-4.9) 07/24/19 04:26 Magnesium 2.4 mg/dL (1.8-2.4) 07/24/19 04:26 Total Bilirubin 0.7 mg/dL (0.2-1.0) 07/25/19 05:38 AST 32 U/L (15-37) 07/25/19 05:38 ALT 56 U/L (12-78) 07/25/19 05:38 Alkaline Phosphatase 43 U/L (45-117) L 07/25/19 05:38 Troponin I < 0.02 ng/mL (0.0-0.045) 07/23/19 21:45 Home Medications: Amox/Clavulanate [Augmentin 875-125 Tab] 875 mg PO BID #12 tab 07/24/19 Codeine/APAP [Tylenol W/Codeine #3 tab] 1 tab PO Q4HP PRN #30 tab 07/24/19 Amlodipine [Norvasc*] 10 mg PO DAILY #30 tab 07/25/19 New Medications: Amox/Clavulanate [Augmentin 875-125 Tab] 875 mg PO BID #12 tab Amlodipine [Norvasc*] 10 mg PO DAILY #30 tab Codeine/APAP [Tylenol W/Codeine #3 tab] 1 tab PO Q4HP PRN #30 tab PRN Reason: Pain Patient Discharge Instructions: Keep area dry for 48h then may remove outer dressing and shower. Record DAYNE output q24h. Call Dr almaraz office for appt. Follow up with primary care physician in 1 week. Follow up with drop board man Dr. Tellez in 2 weeks. Return to ER for worsening condition Diet: AHA Activity: No lifting more than 10 lbs Followup: Sandip Almaraz MD [ACTIVE - CAN ADMIT] - 07/30/19 Time spent managing pt's care (in minutes): 39
--- NOTE | 2019-07-25 09:58 | RAD REPORT ---
EXAM DESCRIPTION: RAD - Chest Single View - 07/25/2019 9:52 am CLINICAL HISTORY: SOB Chest pain. COMPARISON: Chest Single View dated 07/23/2019; Chest Pa And Lat (2 Views) dated 09/29/2016; Abdomen E xam Limited dated 07/23/2019 FINDINGS: Portable technique limits examination quality. The lungs are mildly underinflated with subsegmental atelectasis in both lung bases. The heart is nor mal in size. No displaced fractures.
[2019-07-25 17:35] LABS: Absolute Lymphocytes (CBC) 2.6 K/uL (0.7-4.9); Basophils % 1.1 % (0-1.3); Hematocrit 44.3 % (39.6-49.0); Lymphocytes % 22.7 % (15.3-44.8); MPV 8.7 fL (7.6-11.3); RBC Red Blood Cell Count 4.86 M/uL (4.33-5.43)
[2019-07-25 18:20] VITALS: BP 126/77; TEMP 98.8
--- NOTE | 2019-07-25 20:09 | P.PN ---
Date of Service: 07/25/19 Vital Signs Temp Pulse Resp BP Pulse Ox 98.8 F 75 15 126/77 95 07/25/19 16:00 07/25/19 16:00 07/25/19 16:00 07/25/19 16:00 07/25/19 16:00 Assessment/ Plan: Nephrology Feeling better today. Mild abd soreness. CPS stable without CP or SOB. No acute events overnight. Vitals, medications, blood work and imaging reviewed in the chart. General: In no apparent distress, Oriented x3, Cooperative HEENT: Atraumatic Neck: Supple Respiratory: Clear to auscultation bilaterally Cardiovascular: No edema, Regular rate/rhythm Gastrointestinal: Non-distended, Mild tenderness Musculoskeletal: No clubbing, No contractures Integumentary: No rashes, No cyanosis Neurological: Normal speech Blood work reviewed in the chart. Imagings Data: EXAM DESCRIPTION: US - Abdomen Exam Limited - 07/23/2019 5:24 pm CLINICAL HISTORY: abdominal pain COMPARISON: No comparisons FINDINGS: The gallbladder demonstrates large shadowing gallstone. No pericholecystic fluid or gallbladder wall thickening. The common bile duct is normal measuring 3 mm.. The liver demonstrates no findings of intrahepatic biliary dilatation. IMPRESSION: Cholelithiasis. EXAM DESCRIPTION: CT - Chest Abdomen Pelvis W Cont - 07/23/2019 3:29 pm CLINICAL HISTORY: Chest and abdomen pain. chest pain, abdominal pain COMPARISON: Chest Single View dated 07/23/2019 TECHNIQUE: Approximately 100 mL nonionic IV contrast was administered to the patient. All CT scans are performed using dose optimization technique as appropriate and may include automated exposure control or mA/KV adjustment according to patient size. FINDINGS: Mild linear subsegmental atelectasis is present in both lower lung canseco. No focal infiltrate is detected.No pleural or pericardial effusion.No intrathoracic adenopathy. Diffuse fatty liver. Cholelithiasis. The spleen, pancreas, adrenal glands and kidneys are within normal limits. No bowel obstruction, free air, free fluid or abscess. Normal appendix. No pathologic lymphadenopathy in the abdomen or pelvis. Mild lumbar degenerative changes. IMPRESSION: Cholelithiasis. Fatty liver. EXAM DESCRIPTION: RAD - Chest Single View - 07/23/2019 2:21 pm CLINICAL HISTORY: CHEST PAIN Chest pain. COMPARISON: Chest Pa And Lat (2 Views) dated 09/29/2016 FINDINGS: Portable technique limits examination quality. The lungs are grossly clear. The heart is normal in size. No displaced fractu res. IMPRESSION: No acute intrathoracic process suspected. Conclusions/Impression: A/ MELISSA improving with IVF. Hyponatremia Hypokalemia HTN. IFG with Hyperglycemia Acute cholecystitis sp cholecystectomy. P/ Continue current POC and Medications. Continue abx. Advance diet as tolerated. Counseled regarding hyperglycemia. No NSAIDs. AM labs. Daily weight.
== END 2019-07-25 18:35 | disposition home or self-care (01) | DRG 418 ==
LOC: ER 13:44 → ERHOLD 17:39 → 2ND 19:28
PROVIDERS: ADMIT Family Medicine; ATTEND Family Medicine
PROC: 0W9G40Z Drainage of Peritoneal Cavity with Drainage Device, Percutaneous Endoscopic Approach (ICD-10-PCS; 2019-07-24)
PROC: 0FT44ZZ Resection of Gallbladder, Percutaneous Endoscopic Approach (ICD-10-PCS; principal; 2019-07-24 10:00)
PROC: 0WQF0ZZ Repair Abdominal Wall, Open Approach (ICD-10-PCS; 2019-07-24 10:00)
DX: K80.00 Calculus of gallbladder with acute cholecystitis without obstruction (principal); N17.9 Acute kidney failure, unspecified; E87.1 Hypo-osmolality and hyponatremia; I10 Essential (primary) hypertension; E86.0 Dehydration; R73.03 Prediabetes; K76.0 Fatty (change of) liver, not elsewhere classified; Z79.899 Other long term (current) drug therapy; Z79.891 Long term (current) use of opiate analgesic; F17.200 Nicotine dependence, unspecified, uncomplicated; E87.6 Hypokalemia; R73.9 Hyperglycemia, unspecified; E66.01 Morbid (severe) obesity due to excess calories; Z68.36 Body mass index [BMI] 36.0-36.9, adult
CPT/HCPCS: 36415; 71045; 71260; 74177; 76705; 80048; 80053; 80076; 81001; 82043; 82570; 83036; 83605; 83735; 83880; 84100; 84484; 84550; 85025; 85379; 85610; 88302; 88304; 93005; 94760; 96361; 96365; 96375; 99285; J0330; J0694; J0696; J1170; J1650; J2250; J2270; J2405; J2704; J2710; J3010; J7030; J7042; J7120; J7799; Q9967